=== PATIENT | female | born 1975 | race Asian ===

== ENCOUNTER 2020-08-17 11:48 | Outpatient (REF) | payer OTHER, SELFPAY ==
[2020-08-17 13:56] LABS: MANUAL DIFF FLAG NO
[2020-08-17 14:01] LABS: Basophils Absolute Auto 0.1 X10*3/uL (0.0-0.2); Basophils Percent Auto 0.7 % (0-2); Eosinophils Absolute Auto 0.5 X10*3/uL (0.0-0.4); Eosinophils Percent Auto 5.1 % (0-4); Hemoglobin 12.2 g/dl (12.0-16.0); Imm Gran Abs Auto 0.03 X10*3/uL (0.00-0.03); Imm Gran Pct Auto 0.3 % (0.0-0.4); Lymphocytes Absolute Auto 3.1 X10*3/uL (1.2-4.9); Lymphocytes Percent Auto 31.5 % (20-40); Mean Corpuscular HGB Conc 31.3 g/dl (31.0-35.0); Mean Corpuscular Hemoglobin 26.2 pg (27.0-33.0); Mean Corpuscular Volume 83.9 fL (80-98); Mean Platelet Volume 9.9 fL (9.4-12.3); Monocytes Absolute Auto 0.6 X10*3/uL (0.1-1.2); Monocytes Percent Auto 5.8 % (2-11); Neutrophils Absolute Auto 5.6 X10*3/uL (2.0-8.3); Neutrophils Percent Auto 56.6 % (45-73); Platelet Count 290 X10*3/uL (160-400); Red Blood Count 4.65 X10*6/uL (4.20-5.50); Red Cell Distribution Width 14.5 % (11.0-16.0); White Blood Count 9.8 X10*3/uL (4.8-10.8)
[2020-08-17 14:08] LABS: Estimated Average Glucose 128 mg/dL; Hemoglobin A1c % 6.1 %
[2020-08-17 14:36] LABS: Alanine Aminotransferase 17 U/L (0-31); Albumin Level 4.4 g/dL (3.5-5.0); Alkaline Phosphatase 56 U/L (39-117); Anion Gap 14 (12-20); Aspartate Amino Transferase 18 U/L (5-31); Bilirubin Direct < 0.2 mg/dL (0.0-0.5); Bilirubin Total 0.5 mg/dL (0.0-1.0); Blood Urea Nitrogen 11 mg/dL (9-16); Calcium 8.9 mg/dL (8.4-10.2); Carbon Dioxide 27 mmol/L (22-29); Chloride 101 mmol/L (96-108); Cholesterol 236 mg/dL; Estimated Glomerular Filt Rate > 60; Glucose Fasting 93 mg/dL (60-99); HDL Cholesterol 61 mg/dL; LDL Cholesterol Calculated 123 mg/dl; Potassium 4.3 mmol/L (3.3-5.1); Sodium 138 mmol/L (135-145); Total Protein 7.7 g/dL (6.5-8.0); Triglycerides 263 mg/dL
[2020-08-17 14:56] LABS: TSH reflex Free T4 1.24 uIU/mL (0.32-4.0)
== END 2020-08-17 11:49 | disposition home or self-care (01) ==
LOC: HO.HMGCLDS 11:48
PROVIDERS: PCP Internal Medicine; Visit Provider Internal Medicine
DX: R73.03 Prediabetes (principal); E78.9 Disorder of lipoprotein metabolism, unspecified; N93.8 Other specified abnormal uterine and vaginal bleeding; Z91.09 Other allergy status, other than to drugs and biological substances
CPT/HCPCS: 36415; 80048; 80061; 80076; 83036; 84443; 85025

== ENCOUNTER 2021-03-08 12:16 | Outpatient (REF) | payer OTHER, SELFPAY ==
--- NOTE | ~2021-03-08 | XR_ITS ---
EXAMINATION: XR KNEE, RIGHT CLINICAL INFORMATION: Screening COMPARISON: None TECHNIQUE: Four views of the right knee. FINDINGS: Bone alignment is normal. No fracture or dislocation is seen. The joint spaces are normal. There is a small osteophyte at the quadriceps tendon insertion to the patella. There is no joint effusion. XR/XR knee RT 4V IMPRESSION: Small osteophyte at the quadriceps tendon insertion to the patella otherwise unremarkable exam.
[2021-03-08 14:25] LABS: Estimated Average Glucose 131 mg/dL; Hemoglobin A1c % 6.2 %
[2021-03-08 14:27] LABS: Alanine Aminotransferase 25 U/L (0-31); Albumin Level 4.3 g/dL (3.5-5.0); Alkaline Phosphatase 53 U/L (39-117); Anion Gap 13 (12-20); Aspartate Amino Transferase 26 U/L (5-31); Bilirubin Total 0.5 mg/dL (0.0-1.0); Blood Urea Nitrogen 9 mg/dL (9-16); Calcium 9.2 mg/dL (8.4-10.2); Carbon Dioxide 24 mmol/L (22-29); Chloride 103 mmol/L (96-108); Cholesterol 206 mg/dL; Estimated Glomerular Filt Rate > 60; Glucose Fasting 116 mg/dL (60-99); HDL Cholesterol 53 mg/dL; LDL Cholesterol Calculated 110 mg/dl; Potassium 4.3 mmol/L (3.3-5.1); Sodium 136 mmol/L (135-145); Total Protein 7.3 g/dL (6.5-8.0); Triglycerides 218 mg/dL
== END 2021-03-08 12:17 | disposition home or self-care (01) ==
LOC: HO.HMGCX 12:16
PROVIDERS: PCP Internal Medicine; Visit Provider Internal Medicine
DX: R73.03 Prediabetes (principal); E78.9 Disorder of lipoprotein metabolism, unspecified
CPT/HCPCS: 36415; 73564; 80053; 80061; 83036

== ENCOUNTER 2022-01-16 12:15 | Outpatient (REF) | payer OTHER, SELFPAY ==
[2022-01-16 14:12] LABS: Estimated Average Glucose 140 mg/dL; Hemoglobin A1C 152.2914 umol/L; Hemoglobin A1c % 6.5 %
[2022-01-16 14:25] LABS: Alanine Aminotransferase 26 U/L (0-31); Albumin Level 4.4 g/dL (3.5-5.0); Alkaline Phosphatase 54 U/L (39-117); Anion Gap 12 (12-20); Aspartate Amino Transferase 24 U/L (5-31); Bilirubin Total 0.5 mg/dL (0.0-1.0); Blood Urea Nitrogen 8 mg/dL (9-16); Calcium 8.9 mg/dL (8.4-10.2); Carbon Dioxide 26 mmol/L (22-29); Chloride 103 mmol/L (96-108); Cholesterol 181 mg/dL; Estimated Glomerular Filt Rate > 60; Glucose Fasting 121 mg/dL (60-99); HDL Cholesterol 56 mg/dL; LDL Cholesterol Calculated 88 mg/dl; Potassium 4.3 mmol/L (3.3-5.1); Sodium 137 mmol/L (135-145); Total Protein 7.4 g/dL (6.5-8.0); Triglycerides 185 mg/dL
== END 2022-01-16 12:16 | disposition home or self-care (01) ==
LOC: HO.HMGCLDS 12:15
PROVIDERS: PCP Internal Medicine; Visit Provider Internal Medicine
DX: Z00.01 Encounter for general adult medical examination with abnormal findings (principal); E78.9 Disorder of lipoprotein metabolism, unspecified; R73.03 Prediabetes
CPT/HCPCS: 36415; 80053; 80061; 83036

== ENCOUNTER 2022-07-18 12:12 | Outpatient (REF) | payer OTHER, SELFPAY ==
[2022-07-18 14:29] LABS: Estimated Average Glucose 140 mg/dL; Hemoglobin A1c % 6.5 %
[2022-07-18 14:37] LABS: Alanine Aminotransferase 32 U/L (0-31); Albumin Level 4.3 g/dL (3.5-5.0); Alkaline Phosphatase 58 U/L (39-117); Anion Gap 14 (12-20); Aspartate Amino Transferase 30 U/L (5-31); Bilirubin Total 0.5 mg/dL (0.0-1.0); Blood Urea Nitrogen 9 mg/dL (9-16); Carbon Dioxide 25 mmol/L (22-29); Chloride 102 mmol/L (96-108); Cholesterol 236 mg/dL; Estimated Glomerular Filt Rate > 60; Glucose Fasting 105 mg/dL (60-99); HDL Cholesterol 56 mg/dL; LDL Cholesterol Calculated 135 mg/dl; Potassium 4.4 mmol/L (3.3-5.1); Sodium 137 mmol/L (135-145); Total Protein 7.4 g/dL (6.5-8.0); Triglycerides 226 mg/dL
== END 2022-07-18 12:13 | disposition home or self-care (01) ==
LOC: HO.HMGCLDS 12:12
PROVIDERS: PCP Internal Medicine; Visit Provider Internal Medicine
DX: E78.9 Disorder of lipoprotein metabolism, unspecified (principal); R73.03 Prediabetes
CPT/HCPCS: 36415; 80053; 80061; 83036

== ENCOUNTER 2023-01-13 12:23 | Outpatient (REF) | payer OTHER, SELFPAY ==
[2023-01-13 17:11] LABS: Estimated Average Glucose 154 mg/dL
[2023-01-13 18:19] LABS: Alanine Aminotransferase 24 U/L (0-31); Albumin Level 4.2 g/dL (3.5-5.0); Alkaline Phosphatase 51 U/L (39-117); Anion Gap 15 (12-20); Aspartate Amino Transferase 27 U/L (5-31); Bilirubin Total 0.5 mg/dL (0.0-1.0); Blood Urea Nitrogen 11 mg/dL (9-16); Calcium 9.3 mg/dL (8.4-10.2); Carbon Dioxide 24 mmol/L (22-29); Chloride 101 mmol/L (96-108); Cholesterol 188 mg/dL; Estimated Glomerular Filt Rate > 60; Glucose Fasting 134 mg/dL (60-99); HDL Cholesterol 55 mg/dL; LDL Cholesterol Calculated 92 mg/dl; Potassium 4.1 mmol/L (3.3-5.1); Sodium 136 mmol/L (135-145); Total Protein 7.4 g/dL (6.5-8.0); Triglycerides 209 mg/dL
== END 2023-01-13 12:24 | disposition home or self-care (01) ==
LOC: HO.HMGCLDS 12:23
PROVIDERS: PCP Internal Medicine; Visit Provider Internal Medicine
DX: E78.9 Disorder of lipoprotein metabolism, unspecified (principal); R73.03 Prediabetes
CPT/HCPCS: 36415; 80053; 80061; 83036

== ENCOUNTER 2023-01-22 14:22 | Outpatient (AMB) | payer OTHER, SELFPAY ==
--- NOTE | 2023-01-22 14:22 | A.OFFPC_ITS ---
Vital Signs 01/22/23 14:23 Height 5 ft Weight 149 lb 4 oz BMI 29.1 BP 122/72 Blood Pressure Location Rt brachial Position Sitting Pulse 107 H Pulse Source Pulse Oximeter Pulse Oximetry (%) 97 Oxygen Delivery Method Room Air Intake Visit Reasons: PE Allergies No Known Allergies Allergy (Verified 01/22/23 14:23) Medication List - Last Reconciled 01/22/23 by Martine Evans MD atorvastatin 10 mg PO DAILY 90 days cetirizine (All Day Allergy (cetirizine)) 10 mg PO DAILY 90 days montelukast 10 mg PO DAILY Tobacco use date assessed: 01/22/23 HPI PE HPI0 Details Patient is 48-year-old female came in today for physical exam Patient is seen OBGYN with [facility] mammograms order is through them at [facility] Breast exam through OBGYN Lipid disorder: Patient recently had labs done LDL is well controlled she is on atorvastatin 10 mg and is tolerating medication. Diabetes mellitus: Diet control so far her hemoglobin A1c has gone up to 7.0 I am starting her on metformin 500 mg Side effect reviewed with the patient Patient is to repeat labs in 4 months and see me back in 6 months [facility] Surgical History History of removal of cyst Family History Father Diabetes mellitus Mother No problems noted. Brother No problems noted. Brother No problems noted. Sister No problems noted. Sister No problems noted. Sister No problems noted. Social History Housing: Apartment Patient Tobacco Use Status: Never used Tobacco e-Cigarette/Vaping Use: Never Used Second Hand Smoke Exposure: No service: No Current occupational status: unemployed Cognitive needs: No Hearing needs: No Vision needs: No Questionnaire Thrive Questionnaire Date Thrive assessed: 07/17/22 AUDIT C Alcohol Use Questionnaire (AUDIT-C) 1. How often do you have a drink containing alcohol?: Never 3. How often do you have six or more drinks on one occasion?: Never Total Score: 0 Score Reviewed/Action Taken: Yes RIGOBERTO-7 AMB Questionnaire RIGOBERTO-7 Date RIGOBERTO - 7 assessed: 07/17/22 Source: Developed by Drs. Monico Castillo, Tabatha Treviño, Nicolás Butt and colleagues, with an educational rand from [email or web address]. Review of Systems Const Denies chills, Denies fever(s) and Denies headache(s) Eyes Denies blurry vision ENT Denies headache(s), Denies nasal discharge, Denies nasal obstruction, Denies odynophagia and Denies sinus pain Card Denies chest pain at rest and Denies chest pain with activity Resp Denies cough and Denies hemoptysis GI Denies diarrhea, Denies odynophagia, Denies vomiting and Denies hematemesis Reports as per HPI Musc Denies abnormal gait Skin/Breast Reports as per HPI Neuro Denies Neuro-related abnormal movements, Denies Abnormal speech present, Denies abnormal gait, Denies headache(s) and Denies Sensory deficit (Neuro) Psych Denies mood swings and Denies paranoia Endo Reports as per HPI Dhiraj/Lymph Reports as per HPI Aller/Immun Reports as per HPI Physical exam (Primary Care) Vital Signs: Last Vital Signs Pulse 107 H 01/22/23 14:23 BP 122/72 01/22/23 14:23 Pulse Ox 97 01/22/23 14:23 Oxygen Delivery Method Room Air 01/22/23 14:23 BMI result Body Mass Index 29.1 Tobacco/Smoking Status: Tobacco use Status Tobacco use date assessed 01/22/23 01/22/23 14:25 Patient Tobacco Use Status Never used Tobacco 01/22/23 14:25 e-Cigarette/Vaping Use Never Used 01/22/23 14:25 Thrive Assessment: Date of Thrive Assessment Date Thrive assessed 07/17/22 01/22/23 14:25 Const General: cooperative, comfortable and no acute distress Orientation/consciousness: patient oriented x3 HENMT Head: Yes normocephalic and Yes atraumatic Eyes General: appearance normal, both eyes and all related structures Pupils: Equal, round and reactive pupils present EOM: EOMs intact bilaterally Neck Neck: Yes supple and No lymphadenopathy Thyroid: Thyroid normal Lymphatic: no lymphadenopathy noted Resp Effort & Inspection: normal respiratory effort and able to speak in complete sentences Auscultation: clear to auscultation bilaterally Cardio Heart sounds: S1 normal heart sound present and S2 normal heart sound present GI Palpation (GI): Soft to palpation and nontender Auscultation: normal bowel sounds General: Yes no CVA tenderness Back/Spine/Pelvis Back: no CVA tenderness Skin General skin exam: elasticity normal and turgor normal Neuro General: patient oriented x3 and gait normal Cranial nerves: Yes Equal, round and reactive pupils present Speech: No Abnormal speech present Sensory Exam: No Sensory deficit (Neuro) Coordination: tandem gait normal and Romberg test negative Extrem General: Yes normal exam except as noted and No edema Assessment and Plan Assessment & Plan (1) Encounter for general adult medical examination with abnormal findings: Code(s): Z00.01 - Encounter for general adult medical examination with abnormal findings (2) Non-insulin dependent type 2 diabetes mellitus: Code(s): E11.9 - Type 2 diabetes mellitus without complications (3) Lipid disorder: Code(s): E78.9 - Disorder of lipoprotein metabolism, unspecified (4) Environmental allergies: Code(s): Z91.09 - Other allergy status, other than to drugs and biological substances Plan Patient is 48-year-old female came in today for physical exam Patient is seen OBGYN with [facility] mammograms order is through them at [facility] Breast exam through OBGYN Lipid disorder: Patient recently had labs done LDL is well controlled she is on atorvastatin 10 mg and is tolerating medication. Diabetes mellitus: Diet control so far her hemoglobin A1c has gone up to 7.0 I am starting her on metformin 500 mg Side effect reviewed with the patient Patient is to repeat labs in 4 months and see me back in 6 months Orders: Orders Comprehensive Met. Panel Today E11.9 - Type 2 diabetes mellitus without complications, E78.9 - Disorder of lipoprotein metabolism, unspecified, Z00.01 - Encounter for general adult medical examination with abnormal findings, Z91.09 - Other allergy status, other than to drugs and biological substances Hemoglobin A1c Today E11.9 - Type 2 diabetes mellitus without complications, E78.9 - Disorder of lipoprotein metabolism, unspecified, Z00.01 - Encounter for general adult medical examination with abnormal findings, Z91.09 - Other allergy status, other than to drugs and biological substances Microalbumin, Random (w Creat) Today E11.9 - Type 2 diabetes mellitus without complications, E78.9 - Disorder of lipoprotein metabolism, unspecified, Z00.01 - Encounter for general adult medical examination with abnormal findings, Z91.09 - Other allergy status, other than to drugs and biological substances Medications: New 2 metformin 500 mg PO DAILY 90 tabs 1RF Diabetes Coding Level of Care Code Est Pt Prev Care 40-64y(49374) Diagnoses Encounter for general adult medical examination with abnormal findings Z00.01 Non-insulin dependent type 2 diabetes mellitus E11.9 Lipid disorder E78.9 Environmental allergies Z91.09
[2023-01-22 14:23] VITALS: BP 122/72; PULSE 107; O2SAT 97; BMI 29.1
== END 2023-01-22 15:13 | disposition home or self-care (01) ==
PROVIDERS: Visit Provider Internal Medicine
DX: Z00.01 Encounter for general adult medical examination with abnormal findings (principal); E11.9 Type 2 diabetes mellitus without complications; E78.9 Disorder of lipoprotein metabolism, unspecified; Z91.09 Other allergy status, other than to drugs and biological substances
CPT/HCPCS: 99396

== ENCOUNTER 2023-05-13 11:47 | Outpatient (REF) | payer OTHER, SELFPAY ==
[2023-05-13 13:53] LABS: Estimated Average Glucose 137 mg/dL; Hemoglobin A1c % 6.4 % (<6.0)
[2023-05-13 14:13] LABS: Alanine Aminotransferase 37 U/L (0-31); Albumin Level 4.2 g/dL (3.5-5.0); Alkaline Phosphatase 53 U/L (39-117); Anion Gap 12 (12-20); Aspartate Amino Transferase 33 U/L (5-31); Bilirubin Total 0.4 mg/dL (0.0-1.0); Blood Urea Nitrogen 10 mg/dL (9-16); Calcium 9.2 mg/dL (8.4-10.2); Carbon Dioxide 27 mmol/L (22-29); Chloride 104 mmol/L (96-108); Estimated Glomerular Filt Rate > 60; Glucose Random 116 mg/dL (60-115); Potassium 4.1 mmol/L (3.3-5.1); Sodium 139 mmol/L (135-145); Total Protein 7.5 g/dL (6.5-8.0)
[2023-05-13 14:16] LABS: Microalbum/Creatinine Ratio Ur 113.1 ug/mg cr (<30)
== END 2023-05-13 11:48 | disposition home or self-care (01) ==
LOC: HO.HMGCLDS 11:47
PROVIDERS: PCP Internal Medicine; Visit Provider Internal Medicine
DX: Z00.01 Encounter for general adult medical examination with abnormal findings (principal); E11.9 Type 2 diabetes mellitus without complications; Z91.09 Other allergy status, other than to drugs and biological substances; E78.9 Disorder of lipoprotein metabolism, unspecified
CPT/HCPCS: 36415; 80053; 82043; 82570; 83036

== ENCOUNTER 2023-08-01 12:40 | Outpatient (AMB) | payer OTHER, SELFPAY ==
[2023-08-01 12:42] VITALS: BP 122/70; PULSE 87; O2SAT 100; BMI 28.9
--- NOTE | 2023-08-01 12:42 | MHC.PC.OV ---
Vital Signs 08/01/23 12:42 Height 5 ft Weight 148 lb BMI 28.9 BP 122/70 Blood Pressure Location Rt brachial Position Sitting Pulse 87 Pulse Source Pulse Oximeter Pulse Oximetry (%) 100 Oxygen Delivery Method Room Air Intake Visit Reasons: 6 Month Follow Up~ Allergies No Known Allergies Allergy (Verified 08/01/23 12:44) Medication List - Last Reconciled 08/01/23 by Martine Evans MD atorvastatin 10 mg PO DAILY 90 days cetirizine (All Day Allergy (cetirizine)) 10 mg PO DAILY 90 days metformin 500 mg PO DAILY Tobacco use date assessed: 08/01/23 Dental Screening Dental Screen Date: 08/01/23 Did you have a dental visit in the last 12 months?: Yes Did you have a dental problem in the last 6 months where you did not have access to dental care?: No Was dental information given to patient?: Patient has dentist HPI 6 Month Follow Up~ HPI Details Patient is a 48 year old female came in today for regular for allowing patient is diabetic and is taking metformin 500 mg her hemoglobin A1c was 6.4 in May We will repeat labs again before her next visit in 4 months Lipid disorder: She is supposed to be on statin but patient has stopped taking it. Patient says that she would like to control her diet better and see if she still needs the medication Allergies are stable. Follow-up 4 months [facility] Surgical History History of removal of cyst Family History Father Diabetes mellitus Mother No problems noted. Brother No problems noted. Brother No problems noted. Sister No problems noted. Sister No problems noted. Sister No problems noted. Social History Housing: Apartment Patient Tobacco Use Status: Never used Tobacco e-Cigarette/Vaping Use: Never Used Second Hand Smoke Exposure: No service: No Current occupational status: unemployed Cognitive needs: No Hearing needs: No Vision needs: No Questionnaire Thrive Questionnaire Date Thrive assessed: 07/17/22 AUDIT C Alcohol Use Questionnaire (AUDIT-C) 1. How often do you have a drink containing alcohol?: Never 3. How often do you have six or more drinks on one occasion?: Never Total Score: 0 Score Reviewed/Action Taken: Yes RIGOBERTO-7 AMB Questionnaire RIGOBERTO-7 Date RIGOBERTO - 7 assessed: 07/17/22 Source: Developed by Drs. Monico Castillo, Tabatha Treviño, Nicolás Butt and colleagues, with an educational rand from [email or web address]. Review of Systems Const Denies chills and Denies fever(s) ENT Denies epistaxis and Denies nasal discharge Card Denies chest pain Resp Denies chest congestion, Denies cough and Denies hemoptysis GI Denies diarrhea and Denies nausea Skin/Breast Denies rash Neuro Reports no additional complaints Psych Reports no additional complaints Endo Reports no additional complaints Physical exam (Primary Care) Vital Signs: Last Vital Signs Pulse 87 08/01/23 12:42 BP 122/70 08/01/23 12:42 Pulse Ox 100 08/01/23 12:42 Oxygen Delivery Method Room Air 08/01/23 12:42 BMI result Body Mass Index 28.9 Tobacco/Smoking Status: Tobacco use Status Tobacco use date assessed 08/01/23 08/01/23 12:44 Patient Tobacco Use Status Never used Tobacco 08/01/23 12:44 e-Cigarette/Vaping Use Never Used 08/01/23 12:44 Thrive Assessment: Date of Thrive Assessment Date Thrive assessed 07/17/22 08/01/23 12:44 Const General: cooperative, comfortable and no acute distress Orientation/consciousness: patient oriented x3 HENMT Head: Yes normocephalic Eyes General: appearance normal, both eyes and all related structures Neck Neck: Yes supple Resp Effort & Inspection: normal respiratory effort, no cough and no stridor Cardio Rhythm: regular rhythm Heart sounds: S1 normal heart sound present and S2 normal heart sound present Skin General skin exam: turgor normal Neuro General: patient oriented x3, tone normal and moves all extremities Extrem Right lower extremity: no edema Left lower extremity: no edema Assessment and Plan Assessment & Plan (1) Non-insulin dependent type 2 diabetes mellitus: Code(s): E11.9 - Type 2 diabetes mellitus without complications (2) Environmental allergies: Code(s): Z91.09 - Other allergy status, other than to drugs and biological substances (3) Lipid disorder: Code(s): E78.9 - Disorder of lipoprotein metabolism, unspecified Plan Patient is a 48 year old female came in today for regular for allowing patient is diabetic and is taking metformin 500 mg her hemoglobin A1c was 6.4 in May We will repeat labs again before her next visit in 4 months Lipid disorder: She is supposed to be on statin but patient has stopped taking it. Patient says that she would like to control her diet better and see if she still needs the medication Allergies are stable. Follow-up 4 months Orders: Orders Microalbumin, Random (w Creat) Today E11.9 - Type 2 diabetes mellitus without complications, E78.9 - Disorder of lipoprotein metabolism, unspecified, Z91.09 - Other allergy status, other than to drugs and biological substances Complete Blood Count Auto Diff Today E11.9 - Type 2 diabetes mellitus without complications, E78.9 - Disorder of lipoprotein metabolism, unspecified, Z91.09 - Other allergy status, other than to drugs and biological substances Comprehensive [place]. Panel Fast Today E11.9 - Type 2 diabetes mellitus without complications, E78.9 - Disorder of lipoprotein metabolism, unspecified, Z91.09 - Other allergy status, other than to drugs and biological substances Lipid Panel Today E11.9 - Type 2 diabetes mellitus without complications, E78.9 - Disorder of lipoprotein metabolism, unspecified, Z91.09 - Other allergy status, other than to drugs and biological substances Hemoglobin A1c Today E11.9 - Type 2 diabetes mellitus without complications, E78.9 - Disorder of lipoprotein metabolism, unspecified, Z91.09 - Other allergy status, other than to drugs and biological substances Coding Level of Care Code Est Pt Level 3 (33641) Diagnoses Non-insulin dependent type 2 diabetes mellitus E11.9 Environmental allergies Z91.09 Lipid disorder E78.9
== END 2023-08-01 13:01 | disposition home or self-care (01) ==
PROVIDERS: PCP Internal Medicine; Visit Provider Internal Medicine
DX: E11.9 Type 2 diabetes mellitus without complications (principal); Z91.09 Other allergy status, other than to drugs and biological substances; E78.9 Disorder of lipoprotein metabolism, unspecified
CPT/HCPCS: 99213

== ENCOUNTER 2023-11-19 11:54 | Outpatient (REF) | payer OTHER, SELFPAY ==
[2023-11-19 13:24] LABS: MANUAL DIFF FLAG NO
[2023-11-19 13:27] LABS: Basophils Absolute Auto 0.1 X10*3/uL (0.0-0.2); Basophils Percent Auto 0.8 % (0-2); Eosinophils Absolute Auto 0.4 X10*3/uL (0.0-0.4); Eosinophils Percent Auto 3.8 % (0-4); Hematocrit 41.5 % (37.0-47.0); Hemoglobin 13.5 g/dl (12.0-16.0); Imm Gran Abs Auto 0.03 X10*3/uL (0.00-0.03); Imm Gran Pct Auto 0.3 % (0.0-0.4); Lymphocytes Percent Auto 28.4 % (20-40); Mean Corpuscular HGB Conc 32.5 g/dl (31.0-35.0); Mean Corpuscular Hemoglobin 27.8 pg (27.0-33.0); Mean Corpuscular Volume 85.4 fL (80.0-98.0); Mean Platelet Volume 10.2 fL (9.4-12.3); Monocytes Absolute Auto 0.5 X10*3/uL (0.1-1.2); Monocytes Percent Auto 4.8 % (2-11); Neutrophils Absolute Auto 6.5 x10*3/uL (2.0-8.3); Neutrophils Percent Auto 61.9 % (45-73); Platelet Count 266 X10*3/uL (160-400); Red Blood Count 4.86 X10*6/uL (4.20-5.50); Red Cell Distribution Width 14.2 % (11.0-16.0); White Blood Count 10.5 X10*3/uL (4.8-10.8)
[2023-11-19 13:36] LABS: Estimated Average Glucose 154 mg/dL
[2023-11-19 14:14] LABS: Microalbum/Creatinine Ratio Ur 31.4 ug/mg cr (<30)
[2023-11-19 14:18] LABS: Alanine Aminotransferase 35 U/L (0-31); Albumin Level 4.5 g/dL (3.5-5.0); Alkaline Phosphatase 57 U/L (39-117); Anion Gap 16 (12-20); Aspartate Amino Transferase 32 U/L (5-31); Bilirubin Total 0.4 mg/dL (0.0-1.0); Blood Urea Nitrogen 9 mg/dL (9-16); Calcium 9.6 mg/dL (8.4-10.2); Carbon Dioxide 22 mmol/L (22-29); Chloride 103 mmol/L (96-108); Cholesterol 186 mg/dL (<200); Estimated Glomerular Filt Rate > 60; Glucose Fasting 117 mg/dL (60-99); HDL Cholesterol 63 mg/dL (>40); LDL Cholesterol Calculated 95 mg/dL (<100); Potassium 4.3 mmol/L (3.3-5.1); Sodium 137 mmol/L (135-145); Triglycerides 143 mg/dL (<150)
== END 2023-11-19 11:55 | disposition home or self-care (01) ==
LOC: HO.HMGCLDS 11:54
PROVIDERS: PCP Internal Medicine; Visit Provider Internal Medicine
DX: E11.9 Type 2 diabetes mellitus without complications (principal); Z91.09 Other allergy status, other than to drugs and biological substances; E78.9 Disorder of lipoprotein metabolism, unspecified
CPT/HCPCS: 36415; 80053; 80061; 82043; 82570; 83036; 85025

== ENCOUNTER 2023-11-26 12:44 | Outpatient (AMB) | payer OTHER, SELFPAY ==
--- NOTE | 2023-11-26 12:47 | A.OFFPC_ITS ---
Vital Signs 11/26/23 12:48 Height 5 ft Weight 147 lb BMI 28.7 BP 120/80 Blood Pressure Location Rt brachial Position Sitting Pulse 111 H Pulse Source Pulse Oximeter Pulse Oximetry (%) 98 Oxygen Delivery Method Room Air Intake Visit Reasons: 4 Month Follow Up~ Allergies No Known Allergies Allergy (Verified 11/26/23 12:49) Medication List - Last Reconciled 11/26/23 by Martine Evans MD atorvastatin 10 mg PO DAILY 90 days cetirizine (All Day Allergy (cetirizine)) 10 mg PO DAILY 90 days metformin 500 mg PO DAILY Tobacco use date assessed: 08/01/23 Dental Screening Dental Screen Date: 08/01/23 HPI 4 Month Follow Up~ HPI Details Patient is a 48 year old female history of diabetes and lipid disorder Environmental allergies She is taking metformin 500 mg her hemoglobin A1c is now 7.0 Lipid disorder: Patient is atorvastatin 10 mg patient is tolerating medication Allergies are stable with cetirizine 10 mg She is complaining of burning sensation in her feet, I have ordered EMG nerve conduction study to see if she has developed neuropathy Patient will come in in March for physical examination Labs are needed before visit. [facility] Surgical History History of removal of cyst Family History Father Diabetes mellitus Mother No problems noted. Brother No problems noted. Brother No problems noted. Sister No problems noted. Sister No problems noted. Sister No problems noted. Social History Housing: Apartment Patient Tobacco Use Status: Never used Tobacco e-Cigarette/Vaping Use: Never Used Second Hand Smoke Exposure: No service: No Current occupational status: unemployed Cognitive needs: No Hearing needs: No Vision needs: No Questionnaire Thrive Questionnaire Date Thrive assessed: 07/17/22 RIGOBERTO-7 AMB Questionnaire RIGOBERTO-7 Date RIGOBERTO - 7 assessed: 07/17/22 Source: Developed by Drs. Monico Castillo, Tabatha Treviño, Nicolás Butt and colleagues, with an educational rand from [employer]. Review of Systems Const Denies chills and Denies fever(s) ENT Denies epistaxis and Denies nasal discharge Card Denies chest pain Resp Denies chest congestion, Denies cough and Denies hemoptysis GI Denies diarrhea and Denies nausea Skin/Breast Denies rash Neuro Reports no additional complaints Psych Reports no additional complaints Endo Reports no additional complaints Physical exam (Primary Care) Vital Signs: Last Vital Signs Pulse 111 H 11/26/23 12:48 BP 120/80 11/26/23 12:48 Pulse Ox 98 11/26/23 12:48 Oxygen Delivery Method Room Air 11/26/23 12:48 BMI result Body Mass Index 28.7 Tobacco/Smoking Status: Tobacco use Status Tobacco use date assessed 08/01/23 11/26/23 12:50 Patient Tobacco Use Status Never used Tobacco 11/26/23 12:50 e-Cigarette/Vaping Use Never Used 11/26/23 12:50 Thrive Assessment: Date of Thrive Assessment Date Thrive assessed 07/17/22 11/26/23 12:50 Const General: cooperative, comfortable and no acute distress Orientation/consciousness: patient oriented x3 HENMT Head: Yes normocephalic Eyes General: appearance normal, both eyes and all related structures Neck Neck: Yes supple Resp Effort & Inspection: normal respiratory effort, no cough and no stridor Cardio Rhythm: regular rhythm Heart sounds: S1 normal heart sound present and S2 normal heart sound present Skin General skin exam: turgor normal Neuro General: patient oriented x3, tone normal and moves all extremities Extrem Right lower extremity: no edema Left lower extremity: no edema Assessment and Plan Assessment & Plan (1) Paresthesia of both feet: Code(s): R20.2 - Paresthesia of skin (2) Lipid disorder: Code(s): E78.9 - Disorder of lipoprotein metabolism, unspecified (3) Environmental allergies: Code(s): Z91.09 - Other allergy status, other than to drugs and biological substances (4) Non-insulin dependent type 2 diabetes mellitus: Code(s): E11.9 - Type 2 diabetes mellitus without complications Plan Patient is a 48 year old female history of diabetes and lipid disorder Environmental allergies She is taking metformin 500 mg her hemoglobin A1c is now 7.0 Lipid disorder: Patient is atorvastatin 10 mg patient is tolerating medication Allergies are stable with cetirizine 10 mg She is complaining of burning sensation in her feet, I have ordered EMG nerve conduction study to see if she has developed neuropathy Patient will come in in March for physical examination Labs are needed before visit. Orders: Orders Comprehensive [place]. Panel Fast Today E11.9 - Type 2 diabetes mellitus without complications, E78.9 - Disorder of lipoprotein metabolism, unspecified, R20.2 - Paresthesia of skin, Z91.09 - Other allergy status, other than to drugs and biological substances Lipid Panel Today E11.9 - Type 2 diabetes mellitus without complications, E78.9 - Disorder of lipoprotein metabolism, unspecified, R20.2 - Paresthesia of skin, Z91.09 - Other allergy status, other than to drugs and biological substances NE nerve conduction velocity Today R20.2 - Paresthesia of skin NE electromyogram (EMG) Today R20.2 - Paresthesia of skin Hemoglobin A1c Today E11.9 - Type 2 diabetes mellitus without complications, E78.9 - Disorder of lipoprotein metabolism, unspecified, R20.2 - Paresthesia of skin, Z91.09 - Other allergy status, other than to drugs and biological substances Complete Blood Count Auto Diff Today E11.9 - Type 2 diabetes mellitus without complications, E78.9 - Disorder of lipoprotein metabolism, unspecified, R20.2 - Paresthesia of skin, Z91.09 - Other allergy status, other than to drugs and biological substances Microalbumin, Random (w Creat) Today E11.9 - Type 2 diabetes mellitus without complications, E78.9 - Disorder of lipoprotein metabolism, unspecified, R20.2 - Paresthesia of skin, Z91.09 - Other allergy status, other than to drugs and biological substances Medications: Refilled cetirizine (All Day Allergy (cetirizine)) 10 mg PO DAILY 90 tabs 3RF 90 days atorvastatin 10 mg PO DAILY 90 tabs 1RF 90 days E78.9 - Disorder of lipoprotein metabolism, unspecified metformin 500 mg PO DAILY 90 tabs 0RF Diabetes Coding Level of Care Code Est Pt Level 4 (80164) Diagnoses Paresthesia of both feet R20.2 Lipid disorder E78.9 Environmental allergies Z91.09 Non-insulin dependent type 2 diabetes mellitus E11.9
[2023-11-26 12:48] VITALS: BP 120/80; PULSE 111; O2SAT 98; BMI 28.7
== END 2023-11-26 15:40 | disposition home or self-care (01) ==
PROVIDERS: PCP Internal Medicine; Visit Provider Internal Medicine
DX: R20.2 Paresthesia of skin (principal); E78.9 Disorder of lipoprotein metabolism, unspecified; Z91.09 Other allergy status, other than to drugs and biological substances; E11.9 Type 2 diabetes mellitus without complications
CPT/HCPCS: 99214

== ENCOUNTER 2023-12-16 09:59 | Outpatient (REF) | payer OTHER, SELFPAY ==
--- NOTE | 2023-12-16 10:02 | EMG_ITS ---
Bilateral tibial and peroneal motor studies were performed. Bilateral superficial peroneal, sural, and median and lateral plantar mixed studies were performed. Tibial H reflexes were obtained and paraspinal muscles were tested with a needle. IMPRESSION: 1. 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 2. Bilateral mid to lower lumbar radiculopathy. MD ANDRE Fuentes/KRISSY / [id number]
== END 2023-12-16 10:00 | disposition home or self-care (01) ==
LOC: HO.NEURO 09:59
PROVIDERS: PCP Internal Medicine; Visit Provider Internal Medicine
DX: R20.2 Paresthesia of skin (principal)
CPT/HCPCS: 95886; 95913

== ENCOUNTER 2024-01-01 08:51 | Outpatient (AMB) | payer OTHER, SELFPAY ==
--- NOTE | 2024-01-01 08:52 | A.OFFPC_ITS ---
Intake Visit Reasons: Nerve Conduction study~[phone] Allergies No Known Allergies Allergy (Verified 01/01/24 08:52) Medication List - Last Reconciled 01/01/24 by Martine Evans MD atorvastatin 10 mg PO DAILY 90 days cetirizine (All Day Allergy (cetirizine)) 10 mg PO DAILY 90 days metformin 500 mg PO DAILY Tobacco use date assessed: 01/01/24 Dental Screening Dental Screen Date: 01/01/24 Did you have a dental visit in the last 12 months?: Yes Did you have a dental problem in the last 6 months where you did not have access to dental care?: No Was dental information given to patient?: Patient has dentist HPI Nerve Conduction study~[phone] HPI Details Patient is a 48-year-old female who was complaining of burning s ensation in her feet at her last office visit We ordered EMG nerve conduction study which showed 1. 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 2. Bilateral mid to lower lumbar radicul opathy Patient says that her symptoms are much better, she does not need to see a specialist at that time I have advised patient to start taking vitamin-B complex. And if symptoms got worse she will get back to me. [facility] Surgical History History of removal of cyst Family History Father Diabetes mellitus Mother No problems noted. Brother No problems noted. Brother No problems noted. Sister No problems noted. Sister No problems noted. Sister No problems noted. Social History Housing: Apartment Patient Tobacco Use Status: Never used Tobacco e-Cigarette/Vaping Use: Never Used Second Hand Smoke Exposure: No service: No Current occupational status: unemployed Cognitive needs: No Hearing needs: No Vision needs: No Questionnaire Thrive Questionnaire Date Thrive assessed: 07/17/22 AUDIT C Alcohol Use Questionnaire (AUDIT-C) 1. How often do you have a drink containing alcohol?: Never 3. How often do you have six or more drinks on one occasion?: Never Total Score: 0 Score Reviewed/Action Taken: Yes RIGOBERTO-7 AMB Questionnaire RIGOBERTO-7 Date IRGOBERTO - 7 assessed: 07/17/22 Source: Developed by Drs. Monico Castillo, Tabatha Treviño, Nicolás Butt and colleagues, with an educational rand from [employer]. Review of Systems Const Denies chills and Denies fever(s) ENT Denies epistaxis and Denies nasal discharge Card Denies chest pain Resp Denies chest congestion, Denies cough and Denies hemoptysis GI Denies diarrhea and Denies nausea Skin/Breast Denies rash Neuro Reports no additional complaints Psych Reports no additional complaints Endo Reports no additional complaints Physical exam (Primary Care) Tobacco/Smoking Status: Tobacco use Status Tobacco use date assessed 01/01/24 01/01/24 08:53 Patient Tobacco Use Status Never used Tobacco 01/01/24 08:53 e-Cigarette/Vaping Use Never Used 01/01/24 08:53 Thrive Assessment: Date of Thrive Assessment Date Thrive assessed 07/17/22 01/01/24 08:53 Telehealth Telehealth Telehealth Platform: [employer] Location of provider rendering services: practice address Location of patient: address on file Patient Identification confirmed using: Name, : Yes Telehealth method: voice only Patient verbally consented to treatment: Yes Patient verbally consented to billing insurance company: Yes Patient informed of any privacy concerns related to visit: Yes Minutes spent on Phone/Video with Pt.: 14 Assessment and Plan Assessment & Plan (1) Paresthesia of both feet: Code(s): R20.2 - Paresthesia of skin Plan Patient is a 48-year-old female who was complaining of burning sensation in her feet at her last office visit We ordered EMG nerve conduction study which showed 1. 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 2. Bilateral mid to lower lumbar radiculopathy Patient says that her symptoms are much better, she does not need to see a specialist at that time I have advised patient to start taking vitamin-B complex. And if symptoms got worse she will get back to me. Coding Level of Care Code Tele Est Pt Level 3 (37203) Diagnoses Paresthesia of both feet R20.2
== END 2024-01-01 11:29 | disposition home or self-care (01) ==
LOC: HO.HMGC 08:51
PROVIDERS: PCP Internal Medicine; Visit Provider Internal Medicine
DX: R20.2 Paresthesia of skin (principal)
CPT/HCPCS: 99213

== ENCOUNTER 2024-03-09 12:22 | Outpatient (AMB) | payer OTHER, SELFPAY ==
--- NOTE | 2024-03-09 12:25 | A.OFFPC_ITS ---
Vital Signs 03/09/24 12:26 Height 5 ft Weight 148 lb 2 oz BMI 28.9 BP 118/76 Blood Pressure Location Rt brachial Position Sitting Pulse 109 H Pulse Source Pulse Oximeter Pulse Oximetry (%) 99 Oxygen Delivery Method Room Air Intake Visit Reasons: Annual PE- NEEDS PHQ9 Allergies No Known Allergies Allergy (Verified 03/09/24 12:28) Medication List - Last Reconciled 03/09/24 by Martine Evans MD atorvastatin 10 mg PO DAILY 90 days cetirizine (All Day Allergy (cetirizine)) 10 mg PO DAILY 90 days metformin 500 mg PO DAILY Tobacco use date assessed: 03/09/24 Dental Screening Dental Screen Date: 03/09/24 Did you have a dental visit in the last 12 months?: No Did you have a dental problem in the last 6 months where you did not have access to dental care?: No Was dental information given to patient?: No HPI Annual PE- NEEDS PHQ9 HPI Details Patient is a 49-year-old female came in today for physical exam Due for labs, order placed Colonoscopy refused Mammogram and Gynecology care from [facility], breast exam through gynecology Diabetes mellitus: Patient is tolerating medications no side effects taking metformin 500 mg once a day Blood pressure is stable taking no medication for blood pressure Lipid disorder: Continue atorvastatin 10 mg Allergies are stable Follow-up 6 months or earlier depending on lab report [facility] Surgical History History of removal of cyst Family History Father Diabetes mellitus Mother No problems noted. Brother No problems noted. Brother No problems noted. Sister No problems noted. Sister No problems noted. Sister No problems noted. Social History Housing: Apartment Patient Tobacco Use Status: Never used Tobacco e-Cigarette/Vaping Use: Never Used Second Hand Smoke Exposure: No service: No Current occupational status: unemployed Cognitive needs: No Hearing needs: No Vision needs: No Questionnaire PHQ-9 Over the last 2 weeks, how often have you been bothered by any of the following problems? 1. Little interest or pleasure in doing things: not at all 2. Feeling down, depressed, or hopeless: not at all 3. Trouble falling or staying asleep, or sleeping too much: not at all 4. Feeling tired or having little energy: not at all 5. Poor appetite or overeating: not at all 6. Feeling bad about yourself - or that you are a failure or have let yourself or your family down: not at all 7. Trouble concentrating on things, such as reading the newspaper or watching television: not at all 8. Moving or speaking so slowly that other people could have noticed. Or the opposite - being so fidgety or restless that you have been moving around a lot more than usual: not at all 9. Thoughts that you would be better off or of hurting yourself in some way: not at all Total score: 0 Depression Screening Interpretation: Negative Depression Screening Done: Yes 11393 - PHQ-9 Billing: Yes Source: Developed by Drs. Monico Castillo, Tabatha Treviño, Nicolás Butt and colleagues, with an educational rand from [employer]. Thrive Questionnaire Date Thrive assessed: 03/09/24 I am a: Patient What is your living situation today?: I have a steady place to live Within the past 12 months, did the food you bought not last and you didn't have the money to get more?: Never true Within the past 12 months, did you worry whether your food would run out before you got money to buy more?: Never true Do you have trouble paying for medicines?: No Do you have trouble getting transportation to medical appointments?: No Do you have trouble paying your heating and electricity bill?: No Do you have trouble taking care of your child, family member or friend?: No Do you have trouble with day-to-day activities such as bathing, preparing meals, shopping, managing finances, etc.?: No Are you currently unemployed and looking for a job?: No Are you interested in more education?: No Please select the resources that you would like help with: None Currently or been in a relationship where the following occur: I choose not to answer THRIVE Score: 0 AUDIT C Alcohol Use Questionnaire (AUDIT-C) 1. How often do you have a drink containing alcohol?: Never 3. How often do you have six or more drinks on one occasion?: Never Total Score: 0 Score Reviewed/Action Taken: Yes RIGOBERTO-7 AMB Questionnaire RIGOBERTO-7 Date RIGOBERTO - 7 assessed: 03/09/24 Feeling nervous, anxious, or on edge: 0 = Not at all Not being able to stop or control worryin = Not at all Worrying too much about different things: 0 = Not at all Trouble relaxin = Not at all Being so restless that it is hard to sit still: 0 = Not at all Becoming easily annoyed or irritable: 0 = Not at all Feeling afraid as if something awful might happen: 0 = Not at all Total RIGOBERTO-7 score (0-4 normal; 5-9 mild; 10-14 moderate; 15-21 severe): 0 Source: Developed by Drs. Monico Castillo, Tabatha Treviño, Nicolás Butt and colleagues, with an educational rand from [employer]. RIGOBERTO-7 Assessment Billing RIGOBERTO-7 Assessment Tool: RIGOBERTO-7 Assessment 91718 Review of Systems Const Denies chills, Denies fever(s) and Denies headache(s) Eyes Denies blurry vision ENT Denies headache(s), Denies nasal discharge, Denies nasal obstruction, Denies odynophagia and Denies sinus pain Card Denies chest pain at rest and Denies chest pain with activity Resp Denies cough and Denies hemoptysis GI Denies diarrhea, Denies odynophagia, Denies vomiting and Denies hematemesis Reports as per HPI Musc Denies abnormal gait Skin/Breast Reports as per HPI Neuro Denies Neuro-related abnormal movements, Denies Abnormal speech present, Denies abnormal gait, Denies headache(s) and Denies Sensory deficit (Neuro) Psych Denies mood swings and Denies paranoia Endo Reports as per HPI Dhiraj/Lymph Reports as per HPI Aller/Immun Reports as per HPI Physical exam (Primary Care) Vital Signs: Last Vital Signs Pulse 109 H 03/09/24 12:26 BP 118/76 03/09/24 12:26 Pulse Ox 99 03/09/24 12:26 Oxygen Delivery Method Room Air 03/09/24 12:26 BMI result Body Mass Index 28.9 Tobacco/Smoking Status: Tobacco use Status Tobacco use date assessed 03/09/24 03/09/24 12:29 Patient Tobacco Use Status Never used Tobacco 09/03/24 12:26 e-Cigarette/Vaping Use Never Used 03/09/24 12:26 PHQ-9: PHQ-9 Score PHQ-9: Total score 0 03/09/24 13:07 Depression Screening Interpretation: Negative Thrive Assessment: Date of Thrive Assessment Date Thrive assessed 03/09/24 03/09/24 12:29 Currently or been in a relationship where the following occur: I choose not to answer Const General: cooperative, comfortable and no acute distress Orientation/consciousness: patient oriented x3 HENMT Head: Yes normocephalic and Yes atraumatic Eyes General: appearance normal, both eyes and all related structures Pupils: Equal, round and reactive pupils present EOM: EOMs intact bilaterally Neck Neck: Yes supple and No lymphadenopathy Thyroid: Thyroid normal Lymphatic: no lymphadenopathy noted Resp Effort & Inspection: normal respiratory effort and able to speak in complete sentences Auscultation: clear to auscultation bilaterally Cardio Heart sounds: S1 normal heart sound present and S2 normal heart sound present GI Palpation (GI): Soft to palpation and nontender Auscultation: normal bowel sounds General: Yes no CVA tenderness Back/Spine/Pelvis Back: no CVA tenderness Skin General skin exam: elasticity normal and turgor normal Neuro General: patient oriented x3 and gait normal Cranial nerves: Yes Equal, round and reactive pupils present Speech: No Abnormal speech present Sensory Exam: No Sensory deficit (Neuro) Coordination: tandem gait normal and Romberg test negative Extrem General: Yes normal exam except as noted and No edema Assessment and Plan Assessment & Plan (1) Encounter for general adult medical examination with abnormal findings: Code(s): Z00.01 - Encounter for general adult medical examination with abnormal findings (2) Hair loss: Code(s): L65.9 - Nonscarring hair loss, unspecified (3) Non-insulin dependent type 2 diabetes mellitus: Code(s): E11.9 - Type 2 diabetes mellitus without complications (4) Lipid disorder: Code(s): E78.9 - Disorder of lipoprotein metabolism, unspecified (5) Environmental allergies: Code(s): Z91.09 - Other allergy status, other than to drugs and biological substances (6) Colonoscopy refused: Code(s): Z53.20 - Procedure and treatment not carried out because of patient's decision for unspecified reasons Plan Patient is a 49-year-old female came in today for physical exam Due for labs, order placed Colonoscopy refused Mammogram and Gynecology care from [facility], breast exam through gynecology Complaining of losing hair since early 40s Upon further questioning patient tells me that her mother also had very thin here Most likely hair loss is hormonal. It is okay to take multivitamin tablet as patient is enquiring about it Diabetes mellitus: Patient is tolerating medications no side effects taking metformin 500 mg once a day Blood pressure is stable taking no medication for blood pressure Lipid disorder: Continue atorvastatin 10 mg Allergies are stable Follow-up 6 months or earlier depending on lab report Orders: Orders Comprehensive [place]. Panel Fast 03/09/24 E11.9 - Type 2 diabetes mellitus without complications, E78.9 - Disorder of lipoprotein metabolism, unspecified, Z00.01 - Encounter for general adult medical examination with abnormal findings, Z91.09 - Other allergy status, other than to drugs and biological substances Lipid Panel 03/09/24 E11.9 - Type 2 diabetes mellitus without complications, E78.9 - Disorder of lipoprotein metabolism, unspecified, Z00.01 - Encounter for general adult medical examination with abnormal findings, Z91.09 - Other allergy status, other than to drugs and biological substances Hemoglobin A1c 03/09/24 E11.9 - Type 2 diabetes mellitus without complications, E78.9 - Disorder of lipoprotein metabolism, unspecified, Z00.01 - Encounter for general adult medical examination with abnormal findings, Z91.09 - Other allergy status, other than to drugs and biological substances Complete Blood Count Auto Diff 03/09/24 E11.9 - Type 2 diabetes mellitus without complications, E78.9 - Disorder of lipoprotein metabolism, unspecified, Z00.01 - Encounter for general adult medical examination with abnormal findings, Z91.09 - Other allergy status, other than to drugs and biological substances Microalbumin, Random (w Creat) 03/09/24 E11.9 - Type 2 diabetes mellitus without complications, E78.9 - Disorder of lipoprotein metabolism, unspecified, Z00.01 - Encounter for general adult medical examination with abnormal findings, Z91.09 - Other allergy status, other than to drugs and biological substances Coding Level of Care Code Est Pt Level 3 (00780) Est Pt Prev Care 40-64y(35169) Diagnoses Encounter for general adult medical examination with abnormal findings Z00.01 Hair loss L65.9 Non-insulin dependent type 2 diabetes mellitus E11.9 Lipid disorder E78.9 Environmental allergies Z91.09 Colonoscopy refused Z53.20 Additional Codes RIGOBERTO-7 Assessment Billing - RIGOBERTO-7 Assessment Tool: RIGOBERTO-7 Assessment 80141 ([id number])
[2024-03-09 12:26] VITALS: BP 118/76; PULSE 109; O2SAT 99; BMI 28.9
== END 2024-03-09 12:44 | disposition home or self-care (01) ==
PROVIDERS: PCP Internal Medicine; Visit Provider Internal Medicine
DX: Z00.00 Encounter for general adult medical examination without abnormal findings (principal); L65.9 Nonscarring hair loss, unspecified; E11.9 Type 2 diabetes mellitus without complications; E78.9 Disorder of lipoprotein metabolism, unspecified; Z91.09 Other allergy status, other than to drugs and biological substances; Z53.20 Procedure and treatment not carried out because of patient's decision for unspecified reasons
CPT/HCPCS: 99396

== ENCOUNTER 2024-03-16 11:49 | Outpatient (REF) | payer OTHER, SELFPAY ==
[2024-03-16 13:11] LABS: MANUAL DIFF FLAG NO
[2024-03-16 13:22] LABS: Estimated Average Glucose 146 mg/dL; Hemoglobin A1c % 6.7 % (<6.0); Total Hemoglobin (HGBA1C) 3369.2631 umol/L
[2024-03-16 13:25] LABS: Basophils Absolute Auto 0.1 X10*3/uL (0.0-0.2); Basophils Percent Auto 0.8 % (0-2); Eosinophils Absolute Auto 0.5 X10*3/uL (0.0-0.4); Eosinophils Percent Auto 4.6 % (0-4); Hematocrit 39.3 % (37.0-47.0); Hemoglobin 13.4 g/dl (12.0-16.0); Imm Gran Abs Auto 0.03 X10*3/uL (0.00-0.03); Imm Gran Pct Auto 0.3 % (0.0-0.4); Lymphocytes Absolute Auto 2.8 X10*3/uL (1.2-4.9); Lymphocytes Percent Auto 28.7 % (20-40); Mean Corpuscular HGB Conc 34.1 g/dl (31.0-35.0); Mean Corpuscular Hemoglobin 28.7 pg (27.0-33.0); Mean Corpuscular Volume 84.2 fL (80.0-98.0); Mean Platelet Volume 10.6 fL (9.4-12.3); Monocytes Absolute Auto 0.6 X10*3/uL (0.1-1.2); Monocytes Percent Auto 6.1 % (2-11); Neutrophils Absolute Auto 5.8 x10*3/uL (2.0-8.3); Neutrophils Percent Auto 59.5 % (45-73); Platelet Count 269 X10*3/uL (160-400); Red Blood Count 4.67 X10*6/uL (4.20-5.50); Red Cell Distribution Width 14.1 % (11.0-16.0); White Blood Count 9.7 X10*3/uL (4.8-10.8)
[2024-03-16 13:37] LABS: Alanine Aminotransferase 59 U/L (0-31); Albumin Level 4.5 g/dL (3.5-5.0); Alkaline Phosphatase 55 U/L (39-117); Anion Gap 12 (12-20); Aspartate Amino Transferase 42 U/L (5-31); Bilirubin Total 0.5 mg/dL (0.0-1.0); Blood Urea Nitrogen 11 mg/dL (9-16); Calcium 9.4 mg/dL (8.4-10.2); Carbon Dioxide 26 mmol/L (22-29); Chloride 103 mmol/L (96-108); Cholesterol 184 mg/dL (<200); Estimated Glomerular Filt Rate > 60; Glucose Fasting 129 mg/dL (60-99); HDL Cholesterol 58 mg/dL (>40); LDL Cholesterol Calculated 96 mg/dL (<100); Potassium 4.1 mmol/L (3.3-5.1); Sodium 137 mmol/L (135-145); Total Protein 7.8 g/dL (6.5-8.0); Triglycerides 150 mg/dL (<150)
[2024-03-16 14:04] LABS: Creatinine Urine 182.17 mg/dL; Microalbum/Creatinine Ratio Ur 33.4 ug/mg cr (<30)
== END 2024-03-16 11:50 | disposition home or self-care (01) ==
LOC: HO.HMGCLDS 11:49
PROVIDERS: PCP Internal Medicine; Visit Provider Internal Medicine
DX: Z00.01 Encounter for general adult medical examination with abnormal findings (principal); E78.9 Disorder of lipoprotein metabolism, unspecified; Z91.09 Other allergy status, other than to drugs and biological substances; E11.9 Type 2 diabetes mellitus without complications
CPT/HCPCS: 36415; 80053; 80061; 82043; 82570; 83036; 85025

== ENCOUNTER 2024-11-10 11:54 | Outpatient (REF) | payer OTHER, SELFPAY ==
[2024-11-10 16:27] LABS: Estimated Average Glucose 163 mg/dL; Hemoglobin A1C 194.0009 umol/L; Hemoglobin A1c % 7.3 % (<6.0); Total Hemoglobin (HGBA1C) 3476.0062 umol/L
[2024-11-10 16:54] LABS: Alanine Aminotransferase 28 U/L (0-31); Albumin Level 4.6 g/dL (3.5-5.0); Alkaline Phosphatase 62 U/L (39-117); Anion Gap 13 (12-20); Aspartate Amino Transferase 29 U/L (5-31); Bilirubin Total 0.5 mg/dL (0.0-1.0); Blood Urea Nitrogen 11 mg/dL (9-16); Calcium 9.6 mg/dL (8.4-10.2); Carbon Dioxide 25 mmol/L (22-29); Chloride 103 mmol/L (96-108); Cholesterol 194 mg/dL (<200); Estimated Glomerular Filt Rate > 60; Glucose Fasting 146 mg/dL (60-99); HDL Cholesterol 59 mg/dL (>40); LDL Cholesterol Calculated 99 mg/dL (<100); Potassium 3.9 mmol/L (3.3-5.1); Sodium 137 mmol/L (135-145); Triglycerides 180 mg/dL (<150)
[2024-11-10 16:57] LABS: Creatinine Urine 160.69 mg/dL; Microalbum/Creatinine Ratio Ur 90.2 ug/mg cr (<30)
[2024-11-14 14:38] LABS: Vitamin D 25-OH, D2 <4 ng/mL; Vitamin D 25-OH, D3 20 ng/mL; Vitamin D 25-OH, Total 20 ng/mL (30-100)
== END 2024-11-10 11:55 | disposition home or self-care (01) ==
LOC: HO.HMGCLDS 11:54
PROVIDERS: PCP Internal Medicine; Visit Provider Internal Medicine
DX: R07.82 Intercostal pain (principal); E11.9 Type 2 diabetes mellitus without complications; E78.9 Disorder of lipoprotein metabolism, unspecified; E66.09 Other obesity due to excess calories; Z68.30 Body mass index [BMI] 30.0-30.9, adult; F43.9 Reaction to severe stress, unspecified; Z91.09 Other allergy status, other than to drugs and biological substances; Z79.84 Long term (current) use of oral hypoglycemic drugs; Z79.899 Other long term (current) drug therapy
CPT/HCPCS: 36415; 80053; 80061; 82043; 82306; 82570; 83036; 93005; 96127; 99212

== ENCOUNTER 2024-11-10 11:54 | Outpatient (AMB) | payer OTHER, SELFPAY ==
[2024-11-10 11:59] VITALS: BP 116/78; PULSE 99; O2SAT 98; BMI 30.5
--- NOTE | 2024-11-10 11:59 | MHC.PC.OV ---
Vital Signs 11/10/24 11:59 Height 5 ft Weight 156 lb 4 oz BMI 30.5 BP 116/78 Blood Pressure Location Rt brachial Position Sitting Pulse 99 Pulse Source Pulse Oximeter Pulse Oximetry (%) 98 Oxygen Delivery Method Room Air Intake Visit Reasons: 6 Months Follow Up Allergies No Known Allergies Allergy (Verified 11/10/24 11:59) Medication List - Last Reconciled 11/10/24 by Martine Evans MD atorvastatin 10 mg PO DAILY 90 days cetirizine (All Day Allergy (cetirizine)) 10 mg PO DAILY 90 days metformin 500 mg PO DAILY Tobacco use date assessed: 11/10/24 Dental Screening Dental Screen Date: 11/10/24 Did you have a dental visit in the last 12 months?: No Did you have a dental problem in the last 6 months where you did not have access to dental care?: No Was dental information given to patient?: Patient has dentist HPI 6 Months Follow Up HPI Details History - The patient is a 49-year-old female presenting with complaints of left arm pain, primarily manifesting during sleep. The pain has occurred intermittently, with one significant episode that caused concern while sleeping. - The patient manages Type 2 Diabetes Mellitus with metformin, with a recent hemoglobin A1c of 6.7% from the last evaluation in March, which is indicative of controlled blood glucose levels. - She is currently on atorvastatin for Hyperlipidemia, with an LDL level of 96, which is within the target range. - Recent blood work displayed elevated liver enzymes, with concerns regarding swelling of the liver as mentioned in a previous consultation. - The patient acknowledges an increase in weight from 148 lbs in March to 156.4 lbs currently, with a BMI of 30.5, classifying her as obese. - She has a history of stress, at home, had CAD and had surgery, that is making her worried about her heart, and also has been eating more associates with an increase in weight. - She expressed concern over her ?s sudden open heart surgery, possibly exacerbating her stress levels. EKG was done today, which came back WNL on exam she has some discomfort with pressure / palpation over sternum Problem List - Type 2 Diabetes Mellitus - Hyperlipidemia - Elevated Liver Enzymes - Obesity - Sleep-related Arm Pain - non cardiac chest pain most likely costochondritis stress at home Patient Instructions - Complete fasting blood test today as ordered. - Return for follow-up after blood test results. - Considerations to focus on weight loss through diet and exercise due to obesity. - The EKG has been recommended due to reported arm pain. your EKG is WNL - Monitor for any unusual occurrences related to diabetes and hyperlipidemia, and inform if notable changes in symptoms occur. Review of Systems - General: No fever no chills - Neurological: No headaches no dizziness - Ear nose throat: No sore throat no hearing difficulty no ear pain - Cardiovascular: No syncope, no palpitations - Gastrointestinal: No nausea vomiting or diarrhea - Endocrine: No polyuria polydipsia no heat intolerance - Genitourinary: No dysuria , no blood in urine Physical Exam General: No acute distress HEENT: No acute findings Neck: Supple Respiratory system: Able to talk in full sentences, no audible wheeze Cardiovascular: S1-S2 regular in rate and rhythm Chest : some discomfort with palpation over sternum Gastrointestinal: No pain Extremities: Pain in the left arm, especially when sleeping VETERINARIAN SMALL ANIMAL: Alert awake oriented x3 motor sensory intact Skin: Normal turgor [facility] Surgical History History of removal of cyst Family History Father Diabetes mellitus Mother No problems noted. Brother No problems noted. Brother No problems noted. Sister No problems noted. Sister No problems noted. Sister No problems noted. Social History Housing: Apartment Patient Tobacco Use Status: Never used Tobacco e-Cigarette/Vaping Use: Never Used Second Hand Smoke Exposure: No service: No Current occupational status: unemployed Cognitive needs: No Hearing needs: No Vision needs: No Questionnaire Thrive Questionnaire Date Thrive assessed: 11/10/24 AUDIT C Alcohol Use Questionnaire (AUDIT-C) 1. How often do you have a drink containing alcohol?: Never 3. How often do you have six or more drinks on one occasion?: Never Total Score: 0 Score Reviewed/Action Taken: Yes RIGOBERTO-7 AMB Questionnaire RIGOBERTO-7 Date RIGOBERTO - 7 assessed: 11/10/24 Feeling nervous, anxious, or on edge: 0 = Not at all Not being able to stop or control worryin = Not at all Worrying too much about different things: 0 = Not at all Trouble relaxin = Not at all Being so restless that it is hard to sit still: 0 = Not at all Becoming easily annoyed or irritable: 0 = Not at all Feeling afraid as if something awful might happen: 0 = Not at all Total RIGOBERTO-7 score (0-4 normal; 5-9 mild; 10-14 moderate; 15-21 severe): 0 Source: Developed by Drs. Monico Castillo, Tabatha Treviño, Nicolás Butt and colleagues, with an educational rand from [employer]. RIGOBERTO-7 Assessment Billing RIGOBERTO-7 Assessment Tool: RIGOBERTO-7 Assessment 18067 Physical exam (Primary Care) Vital Signs: Last Vital Signs Pulse 99 11/10/24 11:59 BP 116/78 11/10/24 11:59 Pulse Ox 98 11/10/24 11:59 Oxygen Delivery Method Room Air 11/10/24 11:59 BMI result Body Mass Index 30.5 Tobacco/Smoking Status: Tobacco use Status Tobacco use date assessed 11/10/24 11/10/24 11:59 Patient Tobacco Use Status Never used Tobacco 11/10/24 11:59 e-Cigarette/Vaping Use Never Used 11/10/24 11:59 Thrive Assessment: Date of Thrive Assessment Date Thrive assessed 11/10/24 11/10/24 11:59 Office Procedures EKG 87300-[id number], Complete Coding Level of Care Code Est Pt Level 4 (25874) Complex EM visit Add On G2211 Diagnoses Intercostal pain R07.82 Chest pain type: intercostal pain Non-insulin dependent type 2 diabetes mellitus E11.9 Lipid disorder E78.9 Environmental allergies Z91.09 Obesity due to excess calories E66.09 Stress at home F43.9 CPT Codes EKG - CPT: 01000-[id number], Complete ([id number]) Additional Codes RIGOBERTO-7 Assessment Billing - RIGOBERTO-7 Assessment Tool: RIGOBERTO-7 Assessment 27473 ([id number]) Assessment & Plan Assessment & Plan (1) Chest pain: Code(s): R07.9 - Chest pain, unspecified Category: Medical Qualifiers: Chest pain type: intercostal pain Qualified Code(s): R07.82 - Intercostal pain (2) Non-insulin dependent type 2 diabetes mellitus: Code(s): E11.9 - Type 2 diabetes mellitus without complications Category: Medical (3) Lipid disorder: Code(s): E78.9 - Disorder of lipoprotein metabolism, unspecified Category: Medical (4) Environmental allergies: Code(s): Z91.09 - Other allergy status, other than to drugs and biological substances Category: Medical (5) Obesity due to excess calories: Code(s): E66.09 - Other obesity due to excess calories Category: Medical (6) Stress at home: Code(s): F43.9 - Reaction to severe stress, unspecified Category: Social Hx Plan History - The patient is a 49-year-old female presenting with complaints of left arm pain, primarily manifesting during sleep. The pain has occurred intermittently, with one significant episode that caused concern while sleeping. - The patient manages Type 2 Diabetes Mellitus with metformin, with a recent hemoglobin A1c of 6.7% from the last evaluation in March, which is indicative of controlled blood glucose levels. - She is currently on atorvastatin for Hyperlipidemia, with an LDL level of 96, which is within the target range. - Recent blood work displayed elevated liver enzymes, with concerns regarding swelling of the liver as mentioned in a previous consultation. - The patient acknowledges an increase in weight from 148 lbs in March to 156.4 lbs currently, with a BMI of 30.5, classifying her as obese. - She has a history of stress, at home, had CAD and had surgery, that is making her worried about her heart, and also has been eating more associates with an increase in weight. - She expressed concern over her ?s sudden open heart surgery, possibly exacerbating her stress levels. EKG was done today, which came back WNL on exam she has some discomfort with pressure / palpation over sternum Problem List - Type 2 Diabetes Mellitus - Hyperlipidemia - Elevated Liver Enzymes - Obesity - Sleep-related Arm Pain - non cardiac chest pain most likely costochondritis stress at home Patient Instructions - Complete fasting blood test today as ordered. - Return for follow-up after blood test results. - Considerations to focus on weight loss through diet and exercise due to obesity. - The EKG has been recommended due to reported arm pain. your EKG is WNL - Monitor for any unusual occurrences related to diabetes and hyperlipidemia, and inform if notable changes in symptoms occur. Orders: Orders Hemoglobin A1c 3 Months E11.9 - Type 2 diabetes mellitus without complications, E78.9 - Disorder of lipoprotein metabolism, unspecified, R07.9 - Chest pain, unspecified, Z91.09 - Other allergy status, other than to drugs and biological substances Comprehensive Met. Panel 3 Months E11.9 - Type 2 diabetes mellitus without complications, E78.9 - Disorder of lipoprotein metabolism, unspecified, R07.9 - Chest pain, unspecified, Z91.09 - Other allergy status, other than to drugs and biological substances LDL Cholesterol Direct 3 Months E11.9 - Type 2 diabetes mellitus without complications, E78.9 - Disorder of lipoprotein metabolism, unspecified, R07.9 - Chest pain, unspecified, Z91.09 - Other allergy status, other than to drugs and biological substances Lipid Panel Today E11.9 - Type 2 diabetes mellitus without complications, E78.9 - Disorder of lipoprotein metabolism, unspecified, R07.9 - Chest pain, unspecified, Z91.09 - Other allergy status, other than to drugs and biological substances Vitamin D 25-OH (D2 and D3) Today E11.9 - Type 2 diabetes mellitus without complications, E78.9 - Disorder of lipoprotein metabolism, unspecified, R07.9 - Chest pain, unspecified, Z91.09 - Other allergy status, other than to drugs and biological substances Hemoglobin A1c Today E11.9 - Type 2 diabetes mellitus without complications, E78.9 - Disorder of lipoprotein metabolism, unspecified, R07.9 - Chest pain, unspecified, Z91.09 - Other allergy status, other than to drugs and biological substances Comprehensive [place]. Panel Fast Today E11.9 - Type 2 diabetes mellitus without complications, E78.9 - Disorder of lipoprotein metabolism, unspecified, R07.9 - Chest pain, unspecified, Z91.09 - Other allergy status, other than to drugs and biological substances Microalbumin, Random (w Creat) Today E11.9 - Type 2 diabetes mellitus without complications, E78.9 - Disorder of lipoprotein metabolism, unspecified, R07.9 - Chest pain, unspecified, Z91.09 - Other allergy status, other than to drugs and biological substances
== END 2024-11-10 12:33 | disposition home or self-care (01) ==
LOC: HO.HMCC 11:54
PROVIDERS: PCP Internal Medicine; Visit Provider Internal Medicine
DX: R07.82 Intercostal pain (principal); E11.9 Type 2 diabetes mellitus without complications; E78.9 Disorder of lipoprotein metabolism, unspecified; Z91.09 Other allergy status, other than to drugs and biological substances; E66.09 Other obesity due to excess calories; F43.9 Reaction to severe stress, unspecified

== ENCOUNTER 2025-02-01 12:51 | Outpatient (REF) | payer OTHER, SELFPAY ==
[2025-02-01 16:38] LABS: Hemoglobin A1C 183.5106 umol/L; Total Hemoglobin (HGBA1C) 3446.5304 umol/L
[2025-02-01 16:49] LABS: Alanine Aminotransferase 31 U/L (0-31); Albumin Level 4.7 g/dL (3.5-5.0); Alkaline Phosphatase 65 U/L (39-117); Anion Gap 13 (12-20); Aspartate Amino Transferase 31 U/L (5-31); Blood Urea Nitrogen 9 mg/dL (9-16); Calcium 9.2 mg/dL (8.4-10.2); Carbon Dioxide 26 mmol/L (22-29); Chloride 105 mmol/L (96-108); Estimated Glomerular Filt Rate > 60; Potassium 4.0 mmol/L (3.3-5.1); Sodium 140 mmol/L (135-145); Total Protein 8.0 g/dL (6.5-8.0)
== END 2025-02-01 12:52 | disposition home or self-care (01) ==
LOC: HO.HMGCLDS 12:51
PROVIDERS: PCP Internal Medicine; Visit Provider Internal Medicine
DX: E11.9 Type 2 diabetes mellitus without complications (principal); E78.9 Disorder of lipoprotein metabolism, unspecified; R07.9 Chest pain, unspecified; Z91.09 Other allergy status, other than to drugs and biological substances
CPT/HCPCS: 36415; 80053; 83036; 83721

== ENCOUNTER 2025-02-08 14:47 | Outpatient (AMB) | payer OTHER, SELFPAY ==
[2025-02-08 14:48] VITALS: BP 120/70; PULSE 101; O2SAT 97; BMI 28.5
--- NOTE | 2025-02-08 14:48 | A.OFFPC_ITS ---
Vital Signs 02/08/25 14:48 Height 5 ft Weight 146 lb BMI 28.5 BP 120/70 Blood Pressure Location Lt brachial Position Sitting Pulse 101 H Pulse Source Pulse Oximeter Pulse Oximetry (%) 97 Oxygen Delivery Method Room Air Intake Visit Reasons: 3 month PHQ-9 needed. [employer] Equipment Operator Required: No Allergies No Known Allergies Allergy (Verified 02/08/25 14:48) Medication List - Last Reconciled 02/08/25 by Martine Evans MD atorvastatin 10 mg PO DAILY 90 days cetirizine (All Day Allergy (cetirizine)) 10 mg PO DAILY 90 days metformin 500 mg PO BID Tobacco use date assessed: 11/10/24 Dental Screening Dental Screen Date: 11/10/24 HPI 3 month PHQ-9 needed. HPI Details Chief complaint - Type 2 Diabetes Mellitus - Hyperlipidemia - History of gastrointestinal side effec ts from metformin - The patient is a 50-year-old female pr esenting with ongoing care . - Reports historical difficulty with met formin causing gastrointestinal side effects, leading to intermittent adherence to medication. - Recent Hemoglobin A1C measured at 7.0, showing an improvement from previous result of 7.3. - Engages in dietary adjustments to norma ge diabetes but has expressed concerns about weight loss contributing to perceived weakness. - History of cholesterol management; cur rently on atorvastatin without reported adverse effects. - Reports previous discussions regarding vitamin D deficiency due to diabetes. - Expressed concern about a potential fa tty liver condition, though laboratory tests reportedly normal. - Reports gastrointestinal discomfort wh en taking diabetes medication in double doses. Medications: - Metformin: previously taken in two dos es, causing side effects. - Atorvastatin 10 mg: for hyperlipidemia management. Social History: - Reports efforts to manage weight throu gh dietary changes. - Expressed concern about becoming weak with significant weight loss. Diagnostic Results: - Recent Hemoglobin A1C: 7.0 (previously 7.3). - Cholesterol levels reported as control led - Liver enzymes previously normal Problem List - Type 2 Diabetes Mellitus - Hyperlipidemia - Gastrointestinal side effects from met formin - vitamin D deficiency - overweight with BMI of 28.5 Patient Instructions - Take metformin in a single dose to min imize side effects, and adjust the medication regimen as discussed. - Start taking vitamin D supplement fallon y as discussed. - Continue atorvastatin regimen as previ ously prescribed. - Monitor weight and maintain healthy li festyle changes. - Schedule follow-up appointments and bl ood tests every four months. Review of Systems - General: No fever no chills - Neurological: No headaches no dizziness - Ear nose throat: No sore throat no hearing difficulty no ear pain - Cardiovascular: No syncope, no chest pain, no palpitations - Gastrointestinal: No nausea vomiting or diarrhea - Endocrine: No polyuria polydipsia no heat intolerance - Genitourinary: No dysuria , no blood in urine Physical Exam - General: No acute distress - HEENT: No acute findings - Neck: Supple - Respiratory system: Able to talk in f ull sentences, no audible wheeze - Cardiovascular: S1-S2 regular in rate and rhythm - Gastrointestinal: No pain - Extremities: No new findings - MANIPULATIVE THERAPY SPECIALIST: Alert awake oriented x3 motor se nsory intact - Skin: Normal turgor [facility] Surgical History History of removal of cyst Family History Father Diabetes mellitus Mother No problems noted. Brother No problems noted. Brother No problems noted. Sister No problems noted. Sister No problems noted. Sister No problems noted. Social History Housing: Apartment Patient Tobacco Use Status: Never used Tobacco e-Cigarette/Vaping Use: Never Used Second Hand Smoke Exposure: No service: No Current occupational status: unemployed Cognitive needs: No Hearing needs: No Vision needs: No Questionnaire PHQ-9 Over the last 2 weeks, how often have you been bothered by any of the following problems? 1. Little interest or pleasure in doing things: not at all 2. Feeling down, depressed, or hopeless: not at all 3. Trouble falling or staying asleep, or sleeping too much: not at all 4. Feeling tired or having little energy: not at all 5. Poor appetite or overeating: not at all 6. Feeling bad about yourself - or that you are a failure or have let yourself or your family down: not at all 7. Trouble concentrating on things, such as reading the newspaper or watching television: not at all 8. Moving or speaking so slowly that other people could have noticed. Or the opposite - being so fidgety or restless that you have been moving around a lot more than usual: not at all 9. Thoughts that you would be better off or of hurting yourself in some way: not at all Total score: 0 Depression Screening Interpretation: Negative Depression Screening Done: Yes 05609 - PHQ-9 Billing: Yes Source: Developed by Drs. Monico Castillo, Tabatha Treviño, Nicolás Butt and colleagues, with an educational rand from [employer]. Thrive Questionnaire Date Thrive assessed: 02/08/25 I am a: Patient What is your living situation today?: I have a steady place to live Within the past 12 months, did the food you bought not last and you didn't have the money to get more?: Never true Within the past 12 months, did you worry whether your food would run out before you got money to buy more?: Never true Do you have trouble paying for medicines?: No Do you have trouble getting transportation to medical appointments?: No Do you have trouble paying your heating and electricity bill?: No Do you have trouble taking care of your child, family member or friend?: No Do you have trouble with day-to-day activities such as bathing, preparing meals, shopping, managing finances, etc.?: No Are you currently unemployed and looking for a job?: I choose not to answer this question Are you interested in more education?: No Please select the resources that you would like help with: None Currently or been in a relationship where the following occur: I choose not to answer THRIVE Score: 0 AUDIT C Alcohol Use Questionnaire (AUDIT-C) 1. How often do you have a drink containing alcohol?: Never 3. How often do you have six or more drinks on one occasion?: Never Total Score: 0 Score Reviewed/Action Taken: Yes RIGOBERTO-7 AMB Questionnaire RIGOBERTO-7 Date RIGOBERTO - 7 assessed: 02/08/25 Feeling nervous, anxious, or on edge: 0 = Not at all Not being able to stop or control worryin = Not at all Worrying too much about different things: 0 = Not at all Trouble relaxin = Not at all Being so restless that it is hard to sit still: 0 = Not at all Becoming easily annoyed or irritable: 0 = Not at all Feeling afraid as if something awful might happen: 0 = Not at all Total RIGOBERTO-7 score (0-4 normal; 5-9 mild; 10-14 moderate; 15-21 severe): 0 Source: Developed by Drs. Monico Castillo, Tabatha Treviño, Nicolás Butt and colleagues, with an educational rand from [employer]. RIGOBERTO-7 Assessment Billing RIGOBERTO-7 Assessment Tool: RIGOBERTO-7 Assessment 11439 Physical exam (Primary Care) Vital Signs: Last Vital Signs Pulse 101 H 02/08/25 14:48 BP 120/70 02/08/25 14:48 Pulse Ox 97 02/08/25 14:48 Oxygen Delivery Method Room Air 02/08/25 14:48 BMI result Body Mass Index 28.5 Tobacco/Smoking Status: Tobacco use Status Tobacco use date assessed 11/10/24 02/08/25 14:49 Patient Tobacco Use Status Never used Tobacco 02/08/25 14:49 e-Cigarette/Vaping Use Never Used 02/08/25 14:49 PHQ-9: PHQ-9 Score PHQ-9: Total score 0 02/08/25 14:49 Depression Screening Interpretation: Negative Thrive Assessment: Date of Thrive Assessment Date Thrive assessed 02/08/25 02/08/25 14:49 Currently or been in a relationship where the following occur: I choose not to answer Coding Level of Care Code Est Pt Level 4 (29744) Complex EM visit Add On G2211 Diagnoses Non-insulin dependent type 2 diabetes mellitus E11.9 Lipid disorder E78.9 Environmental allergies Z91.09 Overweight (BMI 25.0-29.9) E66.3 Vitamin D deficiency E55.9 Additional Codes RIGOBERTO-7 Assessment Billing - RIGOBERTO-7 Assessment Tool: RIGOBERTO-7 Assessment 07059 ([id number]) PHQ-9 - 85620 - PHQ-9 Billing: Yes ([id number]) Assessment & Plan Assessment & Plan (1) Non-insulin dependent type 2 diabetes mellitus: Code(s): E11.9 - Type 2 diabetes mellitus without complications Category: Medical (2) Lipid disorder: Code(s): E78.9 - Disorder of lipoprotein metabolism, unspecified Category: Medical (3) Environmental allergies: Code(s): Z91.09 - Other allergy status, other than to drugs and biological substances Category: Medical (4) Overweight (BMI 25.0-29.9): Code(s): E66.3 - Overweight Category: Medical (5) Vitamin D deficiency: Code(s): E55.9 - Vitamin D deficiency, unspecified Category: Medical Plan Chief complaint - Type 2 Diabetes Mellitus - Hyperlipidemia - History of gastrointestinal side effects from metformin - The patient is a 50-year-old female presenting with ongoing care . - Reports historical difficulty with metformin causing gastrointestinal side effects, leading to intermittent adherence to medication. - Recent Hemoglobin A1C measured at 7.0, showing an improvement from previous result of 7.3. - Engages in dietary adjustments to manage diabetes but has expressed concerns about weight loss contributing to perceived weakness. - History of cholesterol management; currently on atorvastatin without reported adverse effects. - Reports previous discussions regarding vitamin D deficiency due to diabetes. - Expressed concern about a potential fatty liver condition, though laboratory tests reportedly normal. - Reports gastrointestinal discomfort when taking diabetes medication in double doses. Medications: - Metformin: previously taken in two doses, causing side effects. - Atorvastatin 10 mg: for hyperlipidemia management. Social History: - Reports efforts to manage weight through dietary changes. - Expressed concern about becoming weak with significant weight loss. Diagnostic Results: - Recent Hemoglobin A1C: 7.0 (previously 7.3). - Cholesterol levels reported as controlled - Liver enzymes previously normal Problem List - Type 2 Diabetes Mellitus - Hyperlipidemia - Gastrointestinal side effects from metformin - vitamin D deficiency - overweight with BMI of 28.5 Patient Instructions - Take metformin in a single dose to minimize side effects, and adjust the medication regimen as discussed. - Start taking vitamin D supplement daily as discussed. - Continue atorvastatin regimen as previously prescribed. - Monitor weight and maintain healthy lifestyle changes. - Schedule follow-up appointments and blood tests every four months. Orders: Orders Complete Blood Count Auto Diff 3 Months E11.9 - Type 2 diabetes mellitus without complications, E55.9 - Vitamin D deficiency, unspecified, E66.3 - Overweight, E78.9 - Disorder of lipoprotein metabolism, unspecified Comprehensive [place]. Panel Fast 3 Months E11.9 - Type 2 diabetes mellitus without complications, E55.9 - Vitamin D deficiency, unspecified, E66.3 - Overweight, E78.9 - Disorder of lipoprotein metabolism, unspecified Lipid Panel 3 Months E11.9 - Type 2 diabetes mellitus without complications, E55.9 - Vitamin D deficiency, unspecified, E66.3 - Overweight, E78.9 - Disorder of lipoprotein metabolism, unspecified Hemoglobin A1c 3 Months E11.9 - Type 2 diabetes mellitus without complications, E55.9 - Vitamin D deficiency, unspecified, E66.3 - Overweight, E78.9 - Disorder of lipoprotein metabolism, unspecified Microalbumin, Random (w Creat) 3 Months E11.9 - Type 2 diabetes mellitus without complications, E55.9 - Vitamin D deficiency, unspecified, E66.3 - Overweight, E78.9 - Disorder of lipoprotein metabolism, unspecified Vitamin D 25-OH (D2 and D3) 3 Months E11.9 - Type 2 diabetes mellitus without complications, E55.9 - Vitamin D deficiency, unspecified, E66.3 - Overweight, E78.9 - Disorder of lipoprotein metabolism, unspecified Medications: New metformin ER 750 mg PO DAILY 90 tabs 0RF cholecalciferol (vitamin D3) 25 mcg PO DAILY 90 tabs 1RF 90 days Refilled atorvastatin 10 mg PO DAILY 90 tabs 0RF 90 days E78.9 - Disorder of lipoprotein metabolism, unspecified Discontinued 2 metformin Discontinued Reason: Doctor's Order 500 mg PO BID 180 tabs 0RF Diabetes
== END 2025-02-08 15:23 | disposition home or self-care (01) ==
LOC: HO.HMCC 14:48
PROVIDERS: PCP Internal Medicine; Visit Provider Internal Medicine
DX: E11.9 Type 2 diabetes mellitus without complications (principal); E78.9 Disorder of lipoprotein metabolism, unspecified; Z91.09 Other allergy status, other than to drugs and biological substances; E66.3 Overweight; E55.9 Vitamin D deficiency, unspecified

== ENCOUNTER → 2025-02-08 14:47 | Outpatient (BNVA) | payer OTHER, SELFPAY | PROVIDERS: PCP Internal Medicine; Visit Provider Internal Medicine | DX: E11.9 Type 2 diabetes mellitus without complications (principal); E78.5 Hyperlipidemia, unspecified; E55.9 Vitamin D deficiency, unspecified; E78.9 Disorder of lipoprotein metabolism, unspecified; E66.3 Overweight; Z91.09 Other allergy status, other than to drugs and biological substances; Z68.28 Body mass index [BMI] 28.0-28.9, adult | CPT/HCPCS: 96127; 99212 ==

== ENCOUNTER 2025-06-04 11:24 | Outpatient (REF) | payer OTHER, SELFPAY ==
[2025-06-04 12:49] LABS: MANUAL DIFF FLAG NO
[2025-06-04 12:51] LABS: Hematocrit 42.2 % (37.0-47.0); Hemoglobin 13.8 g/dl (12.0-16.0); Imm Gran Abs Auto 0.02 X10*3/uL (0.00-0.03); Imm Gran Pct Auto 0.2 % (0.0-0.4); Lymphocytes Absolute Auto 2.8 X10*3/uL (1.2-4.9); Mean Corpuscular HGB Conc 32.7 g/dl (31.0-35.0); Mean Corpuscular Hemoglobin 28.0 pg (27.0-33.0); Mean Corpuscular Volume 85.6 fL (80.0-98.0); NRBC Abs Auto 0.000 X10*3/uL (0.0-0.012); NRBC Pct Auto 0.0 /100WBC (0.0-0.2); Platelet Count 269 X10*3/uL (160-400); Red Blood Count 4.93 X10*6/uL (4.20-5.50); White Blood Count 9.3 X10*3/uL (4.8-10.8)
[2025-06-04 13:17] LABS: Microalbum/Creatinine Ratio Ur 51.6 ug/mg cr (<30)
[2025-06-04 13:18] LABS: Alanine Aminotransferase 38 U/L (0-31); Albumin Level 4.9 g/dL (3.5-5.0); Alkaline Phosphatase 74 U/L (39-117); Anion Gap 14 (12-20); Aspartate Amino Transferase 32 U/L (5-31); Blood Urea Nitrogen 12 mg/dL (9-16); Calcium 9.7 mg/dL (8.4-10.2); Carbon Dioxide 27 mmol/L (22-29); Chloride 103 mmol/L (96-108); Cholesterol 191 mg/dL (<200); Estimated Glomerular Filt Rate > 60; HDL Cholesterol 62 mg/dL (>40); Potassium 4.1 mmol/L (3.3-5.1); Sodium 140 mmol/L (135-145); Total Protein 8.0 g/dL (6.5-8.0); Triglycerides 141 mg/dL (<150)
[2025-06-08 06:09] LABS: Vitamin D 25-OH, D2 <4 ng/mL; Vitamin D 25-OH, D3 32 ng/mL; Vitamin D 25-OH, Total 32 ng/mL (30-100)
== END 2025-06-04 11:25 | disposition home or self-care (01) ==
LOC: HO.HMGCLDS 11:24
PROVIDERS: PCP Internal Medicine; Visit Provider Internal Medicine
DX: E11.9 Type 2 diabetes mellitus without complications (principal); E66.3 Overweight; E78.9 Disorder of lipoprotein metabolism, unspecified; E55.9 Vitamin D deficiency, unspecified
CPT/HCPCS: 36415; 80053; 80061; 82043; 82306; 82570; 83036; 85025

== ENCOUNTER 2025-06-08 14:47 | Outpatient (AMB) | payer OTHER, SELFPAY ==
[2025-06-08 14:49] VITALS: BP 122/70; PULSE 101; O2SAT 96; BMI 28.5
--- NOTE | 2025-06-08 14:49 | MHC.PC.OV ---
Vital Signs 06/08/25 14:49 Height 5 ft Weight 146 lb BMI 28.5 BP 122/70 Blood Pressure Location Lt brachial Position Sitting Pulse 101 H Pulse Source Pulse Oximeter Pulse Oximetry (%) 96 Intake Visit Reasons: 4m follow up Allergies No Known Allergies Allergy (Verified 06/08/25 14:49) Medication List - Last Reconciled 06/08/25 by Martine Evans MD alcohol swabs (Alcohol Pads) 1 pad topical DAILY atorvastatin 10 mg PO DAILY 90 days blood sugar diagnostic (FreeStyle Lite Strips) Check blood sugar once daily as directed blood-glucose meter (FreeStyle Lite Meter kit) Check blood pressure once daily as directed cetirizine (All Day Allergy (cetirizine)) 10 mg PO DAILY 90 days cholecalciferol (vitamin D3) 25 mcg PO DAILY 90 days lancets (FreeStyle Lancets) Check blood sugar once daily as directed metformin ER 750 mg PO DAILY Tobacco use date assessed: 11/10/24 Dental Screening Dental Screen Date: 11/10/24 HPI HPI Comments History of Present Illness Details History of Present Illness The patient is a 50 year old individual presenting for follow-up on diabetes management and review of recent laboratory results. Type 2 Diabetes Mellitus: - The patient's most recent HbA1c is 7.1%, a slight increase from a previous result of 7.0%. - The patient is currently taking Metformin 750 mg. - The patient reports some diarrhea with the current dose but states it is manageable and less severe than with a previous 1000 mg dose. Diabetic Nephropathy: - The patient has concerns about kidney health due to a family history of a cousin who from kidney failure secondary to diabetes at age 41. - Recent lab results show a urine vlddkjs-qz-gfvhjtbtrj ratio of 51, which has decreased from a prior level of 90 but remains above the normal threshold of 30. Hypercholesterolemia: - Recent cholesterol level was noted to be 101, which was deemed acceptable. Diagnostic Results: - Lab results: - HbA1c: 7.1%. - Kidney function: Reported as okay. - Urine xsailke-bn-gefuychubj ratio: 51 (Normal is <30). - Cholesterol: 101. [facility] Surgical History History of removal of cyst Family History Father Diabetes mellitus Mother No problems noted. Brother No problems noted. Brother No problems noted. Sister No problems noted. Sister No problems noted. Sister No problems noted. Social History Housing: Apartment Patient Tobacco Use Status: Never used Tobacco e-Cigarette/Vaping Use: Never Used Second Hand Smoke Exposure: No service: No Current occupational status: unemployed Cognitive needs: No Hearing needs: No Vision needs: No Questionnaire Thrive Questionnaire Date Thrive assessed: 02/08/25 I am a: Patient What is your living situation today?: I have a steady place to live Within the past 12 months, did the food you bought not last and you didn't have the money to get more?: Never true Within the past 12 months, did you worry whether your food would run out before you got money to buy more?: Never true Do you have trouble paying for medicines?: No Do you have trouble getting transportation to medical appointments?: No Do you have trouble paying your heating and electricity bill?: No Do you have trouble taking care of your child, family member or friend?: No Do you have trouble with day-to-day activities such as bathing, preparing meals, shopping, managing finances, etc.?: No Are you currently unemployed and looking for a job?: I choose not to answer this question Are you interested in more education?: No Please select the resources that you would like help with: None Currently or been in a relationship where the following occur: I choose not to answer THRIVE Score: 0 RIGOBERTO-7 AMB Questionnaire RIGOBERTO-7 Date RIGOBERTO - 7 assessed: 02/08/25 Source: Developed by Drs. Monico Castillo, Tabatha Treviño, Nicolás Butt and colleagues, with an educational rand from [employer]. Review of Systems Narrative Review of Systems - General: No fever no chills - Neurological: No headaches no dizziness - Ear nose throat: No sore throat no hearing difficulty no ear pain - Cardiovascular: No syncope, no chest pain, no palpitations - Gastrointestinal: No nausea vomiting or diarrhea - Endocrine: No polyuria polydipsia no heat intolerance - Genitourinary: No dysuria , no blood in urine Physical exam (Primary Care) Vital Signs: Last Vital Signs Pulse 101 H 06/08/25 14:49 BP 122/70 06/08/25 14:49 Pulse Ox 96 06/08/25 14:49 BMI result Body Mass Index 28.5 Tobacco/Smoking Status: Tobacco use Status Tobacco use date assessed 11/10/24 06/08/25 14:50 Patient Tobacco Use Status Never used Tobacco 06/08/25 14:50 e-Cigarette/Vaping Use Never Used 06/08/25 14:50 Thrive Assessment: Date of Thrive Assessment Date Thrive assessed 02/08/25 06/08/25 14:50 Currently or been in a relationship where the following occur: I choose not to answer Narrative Physical Exam General: No acute distress HEENT: No acute findings Neck: Supple Respiratory system: Able to talk in full sentences, no audible wheeze Cardiovascular: S1-S2 regular in rate and rhythm Gastrointestinal: No pain Extremities: Tension on left foot [employer]: Alert awake oriented x3 motor intact Skin: Normal turgor Coding Level of Care Code Est Pt Level 4 (29739) Diagnoses Non-insulin dependent type 2 diabetes mellitus E11.9 Diabetic nephropathy associated with type 2 diabetes mellitus E11.21 Diabetes mellitus type: type 2 Lipid disorder E78.9 CKD stage 3a, GFR 45-59 ml/min N18.31 Assessment & Plan Assessment & Plan (1) Non-insulin dependent type 2 diabetes mellitus: Code(s): E11.9 - Type 2 diabetes mellitus without complications Category: Medical (2) Diabetic nephropathy: Code(s): E11.21 - Type 2 diabetes mellitus with diabetic nephropathy Category: Medical Qualifiers: Diabetes mellitus type: type 2 Qualified Code(s): E11.21 - Type 2 diabetes mellitus with diabetic nephropathy (3) Lipid disorder: Code(s): E78.9 - Disorder of lipoprotein metabolism, unspecified Category: Medical (4) CKD stage 3a, GFR 45-59 ml/min: Code(s): N18.31 - Chronic kidney disease, stage 3a Category: Medical Plan Problem List - Type 2 diabetes mellitus - Diabetic nephropathy - Hypercholesterolemia - CKD Plan - The patient will continue taking Metformin 750 mg. - A prescription for Glipizide 2.5 mg will be sent to the pharmacy to be added to the patient's regimen for better glycemic control. - The patient was reassured that the kidney status is not dangerous but requires maintaining good blood sugar control to manage the complication from diabetes. - Repeat blood tests are scheduled in 3 months. - A follow-up visit is scheduled in 3.5 months. Orders: Orders Hemoglobin A1c Today E11.9 - Type 2 diabetes mellitus without complications Comprehensive Met. Panel Today E11.9 - Type 2 diabetes mellitus without complications Microalbumin, Random (w Creat) Today E11.9 - Type 2 diabetes mellitus without complications Medications: New glipizide 2.5 mg PO DAILY 90 tabs 0RF
== END 2025-06-08 15:05 | disposition home or self-care (01) ==
LOC: HO.HMCC 14:48
PROVIDERS: PCP Internal Medicine; Visit Provider Internal Medicine
DX: E11.21 Type 2 diabetes mellitus with diabetic nephropathy (principal); E78.9 Disorder of lipoprotein metabolism, unspecified; N18.31 Chronic kidney disease, stage 3a

== ENCOUNTER → 2025-06-08 14:47 | Outpatient (BNVA) | payer OTHER, SELFPAY | PROVIDERS: PCP Internal Medicine; Visit Provider Internal Medicine | DX: E11.21 Type 2 diabetes mellitus with diabetic nephropathy (principal); E11.22 Type 2 diabetes mellitus with diabetic chronic kidney disease; N18.31 Chronic kidney disease, stage 3a; E78.9 Disorder of lipoprotein metabolism, unspecified | CPT/HCPCS: 99212 ==